=== PATIENT | female | born 1955 ===

== ENCOUNTER 2016-10-20 09:45 | Emergency (ER) | payer OTHER ==
[2016-10-20 09:54] VITALS: BP 125/78; PULSE 83; RESP 16; TEMP 98; O2SAT 98
[2016-10-20 09:55] VITALS: BMI 27.5
--- NOTE | 2016-10-20 10:54 | ED PDOC ---
Syncope/Near Syncope/Dizziness Time Seen by Provider: 10/20/16 10:21 Chief Complaint (Nursing): Dizziness/Lightheaded History Per: Patient Additional Complaint(s): Patient is a 61 F with pmh of colostomy in 2016, DVTs bilaterally 2016, HTN, HLD , DM, diverticulitis, anxiety, depression, who presents today c/o dizziness and generalized weakness x 1 week. Pt was recently discharged from [facility] ED when she presented with rectal bleeding. Pt was diagnosed with Anemia and GI bleed. Pt reports her Coumadin was stopped upon discharge and she was told not to resume until next week after she has her appointment with the clinic. Patient denies headache, shortness of breath, chest pain, abdominal pain, palpitations, nausea, or vomiting. no rectal bleeding in 1 week now. Pt reports that at this moment she feels well, she would like to apply for javy care. PMD: Dr. Saxena PmHx: DVTs bilaterally 2015, HTN, HLD, DM, diverticulitis, anxiety, depression Psurgical: appendectomy 11/17: colostomy 09/18: colostomy reversal allergies: oxycodone, tramadol famhx: mom- DM, HTN Social: no tobacco, alcohol, drugs, lives alone, not working Home meds: Coumadin 5 mg M-F 6mg Sat and Sun, Lisinopril 2.5 Simvastatin 20mg HS Metformin 500 mg BID Past Medical History Reviewed: Nursing Documentation, Vital Signs Vital Signs: Last Vital Signs Temp 98 F 10/20/16 09:54 Pulse 83 10/20/16 09:54 Resp 16 10/20/16 09:54 BP 125/78 10/20/16 09:54 Pulse Ox 98 10/20/16 09:54 - Medical History PMH: Anemia, Anxiety, Arthritis, Depression, Diabetes, Diverticulitis, Deep Vein Thrombosis (b/l lower ext), HTN, Hypercholesterolemia, Hyperlipidemia Denies: Chronic Kidney Disease - Surgical History Surgical History: Appendectomy - Family History Family History: States: Unknown Family Hx - Living Arrangements Living Arrangements: With Family - Social History Current smoker - smoking cessation education provided: No Alcohol: None Drugs: Denies - Immunization History Hx Tetanus Toxoid Vaccination: No Hx Influenza Vaccination: Yes Hx Pneumococcal Vaccination: Yes - Home Medications Home Medications: Ambulatory Orders Medication Instructions Recorded Docusate [Colace] 100 mg PO PRN PRN 01/07/16 Simvastatin 20 mg PO HS 01/07/16 metFORMIN [glucOPHAGE] 500 mg PO BID 01/07/16 Lisinopril [Zestril] 2.5 mg PO DAILY 05/14/16 - Allergies Allergies/Adverse Reactions: Allergies Allergy/AdvReac Type Severity Reaction Status Date / Time oxycodone Allergy RASH Verified 10/20/16 10:29 tramadol Allergy RASH Verified 10/20/16 10:29 Review of Systems ROS Statement: Except As Marked, All Systems Reviewed And Found Negative Constitutional: Positive for: Weakness Physical Exam - Reviewed Nursing Documentation Reviewed: Yes Vital Signs Reviewed: Yes - Physical Exam Appears: Positive for: Well, Non-toxic, No Acute Distress Head Exam: Positive for: ATRAUMATIC, NORMAL INSPECTION, NORMOCEPHALIC Skin: Positive for: Normal Color, Warm, DRY Eye Exam: Positive for: EOMI, Normal appearance, PERRL ENT: Positive for: Normal ENT Inspection Neck: Positive for: Normal, Painless ROM Cardiovascular/Chest: Positive for: Regular Rate, Rhythm Respiratory: Positive for: CNT, Normal Breath Sounds Gastrointestinal/Abdominal: Positive for: Normal Exam, Bowel Sounds, Soft Back: Positive for: Normal Inspection Extremity: Positive for: Normal ROM Neurologic/Psych: Positive for: Alert, Oriented - Laboratory Results Result Diagrams: 10/20/16 11:22 10/20/16 11:22 - ECG O2 Sat by Pulse Oximetry: 98 Medical Decision Making Medical Decision Making: IV access established and diagnostics ordered. EKG interpreted and cleared by ED MED labs resulted and reviewed with Pt, compared to labs results when admitted to [facility]. Pt reports that she is feeling well, no complaints. applied for javy care and would liek to go home at this time. Disposition - Clinical Impression Clinical Impression: Anemia, Weakness - Disposition Referrals: [facility] [place] [Outside] Andrew DURAN,MD Rachid [Medical Doctor] - Disposition: Routine/Home Disposition Time: 14:56 Condition: STABLE Instructions: Weakness (ED) - POA Present On Arrival: None
[2016-10-20 11:26] LABS: BASO # 0.1 K/uL (0.0-0.2); BASO % 1.2 % (0.0-2.0); EOS # 0.2 K/uL (0.0-0.7); EOS % 3.6 % (0.0-4.0); HEMATOCRIT 26.3 % (34.0-47.0); LYMPH # 2.3 K/uL (1.0-4.3); LYMPH % 45.9 % (20.0-40.0); MEAN CELL VOLUME 90.5 fl (81.0-99.0); MEAN CORPUSCULAR HEMOGLOBIN 28.6 pg (27.0-31.0); MEAN CORPUSCULAR HGB CONC 31.6 g/dL (33.0-37.0); MEAN PLATELET VOLUME 8.8 fl (7.2-11.7); MONO # 0.5 K/uL (0.0-0.8); MONO % 9.3 % (0.0-10.0); NRBC % 0.1 % (0.0-0.0); RED CELL DISTRIBUTION WIDTH 15.9 % (11.5-14.5); WHITE BLOOD COUNT 4.9 K/uL (4.8-10.8)
[2016-10-20 11:37] LABS: ALB/GLOB RATIO 1.3 (1.0-2.1); ALKALINE PHOSPHATASE 40 U/L (38-126); ALT/SGPT 27 U/L (9-52); AST/SGOT 44 U/L (14-36); BILIRUBIN,TOTAL 0.5 mg/dl (0.2-1.3); BLOOD UREA NITROGEN 14 mg/dl (7-17); CALCIUM 9.1 mg/dL (8.4-10.2); CARBON DIOXIDE 26 mmol/L (22-30); CHLORIDE 103 mmol/L (98-107); GFR AFRICAN-AMERICAN > 60; GLUCOSE,RANDOM 90 mg/dL (65-105); SODIUM 138 mmol/l (132-148); TOTAL PROTEIN 7.5 G/DL (6.3-8.2)
--- NOTE | 2016-10-20 11:48 | RAD ---
HISTORY: med screening COMPARISON: No prior. FINDINGS: LUNGS: No active pulmonary disease. PLEURA: No significant pleural effusion identified, no pneumothorax apparent. CARDIOVASCULAR: Normal. OSSEOUS STRUCTURES: No significant abnormalities. VISUALIZED UPPER ABDOMEN: Normal. OTHER FINDINGS: None. IMPRESSION: No active disease.
[2016-10-20 12:27] LABS: PARTIAL THROMBOPLASTIN TIME 24.7 Seconds (25.6-37.1)
[2016-10-20 13:10] LABS: POTASSIUM 4.6 MMOL/L (3.6-5.0)
--- NOTE | 2016-10-20 13:15 | CARD ---
APPROVED REPORT EKG Measurement Heart [id number] <Conclusion> Normal sinus rhythm Normal ECG
== END 2016-10-20 14:50 | disposition home or self-care (01) ==
LOC: H.ER 09:45
DX: D64.9 Anemia, unspecified (principal); R53.1 Weakness; E11.9 Type 2 diabetes mellitus without complications; E78.00 Pure hypercholesterolemia, unspecified; F32.9 Major depressive disorder, single episode, unspecified; F41.9 Anxiety disorder, unspecified; I10 Essential (primary) hypertension; Z79.01 Long term (current) use of anticoagulants; Z79.84 Long term (current) use of oral hypoglycemic drugs; Z86.718 Personal history of other venous thrombosis and embolism; Z93.3 Colostomy status

== ENCOUNTER 2016-10-31 09:04 | Emergency (ER) | payer OTHER ==
[2016-10-31 09:10] VITALS: TEMP 96.9; O2SAT 99
[2016-10-31 09:11] VITALS: BMI 27.7
--- NOTE | 2016-10-31 09:46 | ED PDOC ---
HPI: Abdomen Time Seen by Provider: 10/31/16 09:25 Chief Complaint (Nursing): Abdominal Pain Chief Complaint (Provider): abdominal pain History Per: Patient History/Exam Limitations: no limitations Onset/Duration Of Symptoms: Hrs Additional Complaint(s): Marietta Camilo is a 61 year old female, with a previous medical history of diverticulitis status post colectomy, who presents to the ED with complaints of abdominal pain which started prior to arrival. Patient denies any nausea, vomiting, diarrhea, bloody stool, fever or chills. She reports pain is similar to that of her acute diverticulitis. PMD: Rafa Ryder MD Past Medical History Reviewed: Historical Data, Nursing Documentation, Vital Signs Vital Signs: Last Vital Signs Temp 96.9 F L 10/31/16 09:09 Pulse 70 10/31/16 09:09 Resp 16 10/31/16 09:09 BP 123/75 10/31/16 09:09 Pulse Ox 99 10/31/16 09:48 - Medical History PMH: Anemia, Anxiety, Arthritis, Depression, Diabetes, Diverticulitis, Deep Vein Thrombosis (b/l lower ext), HTN, Hypercholesterolemia, Hyperlipidemia Denies: Chronic Kidney Disease - Surgical History Surgical History: Appendectomy Other surgeries: colectomy - Family History Family History: States: Unknown Family Hx - Immunization History Hx Tetanus Toxoid Vaccination: No Hx Influenza Vaccination: Yes Hx Pneumococcal Vaccination: Yes - Home Medications Home Medications: Ambulatory Orders Medication Instructions Recorded Docusate [Colace] 100 mg PO PRN PRN 01/07/16 Simvastatin 20 mg PO HS 01/07/16 metFORMIN [glucOPHAGE] 500 mg PO BID 01/07/16 Lisinopril [Zestril] 2.5 mg PO DAILY 05/14/16 Dicyclomine [Dicyclomine HCl] 10 mg PO Q8 #10 cap 10/31/16 Famotidine [Pepcid] 20 mg PO Q12 #20 tab 10/31/16 - Allergies Allergies/Adverse Reactions: Allergies Allergy/AdvReac Type Severity Reaction Status Date / Time oxycodone Allergy RASH Verified 10/20/16 10:29 tramadol Allergy RASH Verified 10/20/16 10:29 Review of Systems ROS Statement: Except As Marked, All Systems Reviewed And Found Negative Constitutional: Negative for: Fever, Chills Gastrointestinal: Positive for: Abdominal Pain. Negative for: Nausea, Vomiting , Diarrhea Physical Exam - Reviewed Nursing Documentation Reviewed: Yes Vital Signs Reviewed: Yes - Physical Exam Appears: Positive for: Well, Non-toxic, No Acute Distress Head Exam: Positive for: ATRAUMATIC, NORMAL INSPECTION, NORMOCEPHALIC Skin: Positive for: Normal Color, Warm, DRY Eye Exam: Positive for: EOMI, Normal appearance, PERRL ENT: Positive for: Normal ENT Inspection Neck: Positive for: Normal, Painless ROM Cardiovascular/Chest: Positive for: Regular Rate, Rhythm Respiratory: Positive for: CNT, Normal Breath Sounds Gastrointestinal/Abdominal: Positive for: Bowel Sounds, Soft, Tenderness (left sided) Back: Positive for: Normal Inspection Extremity: Positive for: Normal ROM Neurologic/Psych: Positive for: Alert, Oriented - Laboratory Results Result Diagrams: 10/31/16 09:48 10/31/16 09:48 - ECG O2 Sat by Pulse Oximetry: 99 (RA) Pulse Ox Interpretation: Normal Medical Decision Making Medical Decision Making: Initial Plan: * labs * CT abd & pelvis w/ IV contrast * reevaluation Scribe Attestation: Documented by Kimmie Edwards, acting as a scribe for Edinson Higgins MD. Provider Scribe Attestation: All medical record entries made by the Scribe were at my direction and personally dictated by me. I have reviewed the chart and agree that the record accurately reflects my personal performance of the history, physical exam, medical decision making, and the department course for this patient. I have also personally directed, reviewed, and agree with the discharge instructions and disposition. Disposition - Clinical Impression Clinical Impression: Gastritis, Ventral hernia - Patient ED Disposition Is Patient to be Admitted: No Counseled Patient/Family Regarding: Studies Performed, Diagnosis, Need For Followup, Rx Given - Disposition Disposition: Routine/Home Disposition Time: 12:54 Condition: FAIR Prescriptions: Dicyclomine [Dicyclomine HCl] 10 mg PO Q8 #10 cap Famotidine [Pepcid] 20 mg PO Q12 #20 tab Instructions: Gastritis (ED) Forms: [facility] (Chinese) Print Language: MALIAN
[2016-10-31 09:56] LABS: BASO # 0.1 K/uL (0.0-0.2); BASO % 1.7 % (0.0-2.0); EOS # 0.1 K/uL (0.0-0.7); EOS % 2.1 % (0.0-4.0); HEMATOCRIT 26.6 % (34.0-47.0); LYMPH # 1.6 K/uL (1.0-4.3); LYMPH % 25.8 % (20.0-40.0); MEAN CELL VOLUME 87.2 fl (81.0-99.0); MEAN CORPUSCULAR HEMOGLOBIN 27.3 pg (27.0-31.0); MEAN CORPUSCULAR HGB CONC 31.4 g/dL (33.0-37.0); MEAN PLATELET VOLUME 8.8 fl (7.2-11.7); MONO # 0.5 K/uL (0.0-0.8); MONO % 7.8 % (0.0-10.0); NEUT # 3.8 K/uL (1.8-7.0); NEUT % 62.6 % (50.0-75.0); NRBC % 0.2 % (0.0-0.0); RED CELL DISTRIBUTION WIDTH 15.8 % (11.5-14.5)
[2016-10-31 10:09] LABS: ALB/GLOB RATIO 1.2 (1.0-2.1); ALKALINE PHOSPHATASE 50 U/L (38-126); ALT/SGPT 29 U/L (9-52); AST/SGOT 33 U/L (14-36); BILIRUBIN,TOTAL 0.4 mg/dl (0.2-1.3); BLOOD UREA NITROGEN 15 mg/dl (7-17); CALCIUM 9.2 mg/dL (8.4-10.2); CARBON DIOXIDE 24 mmol/L (22-30); CHLORIDE 108 mmol/L (98-107); GFR AFRICAN-AMERICAN > 60; GLUCOSE,RANDOM 106 mg/dL (65-105); SODIUM 139 mmol/l (132-148); TOTAL PROTEIN 7.3 G/DL (6.3-8.2)
[2016-10-31 10:19] LABS: POTASSIUM 5.1 MMOL/L (3.6-5.0)
[2016-10-31] MEDS ORDERED: Iohexol 300 100 ML IJ ONE (11:21)
[2016-10-31] MEDS ORDERED: Sodium Chloride 0.9% 50 ML IV ONE (11:22)
--- NOTE | 2016-10-31 12:47 | CT ---
PROCEDURE: CT Abdomen and Pelvis with contrast HISTORY: abd h/o diverticulitis COMPARISON: None. TECHNIQUE: Contrast dose: 100 cc of Omnipaque 350 Radiation dose: Total exam DLP = 581 mGy-cm. This CT exam was performed using one or more of the following dose reduction techniques: Automated exposure control, adjustment of the mA and/or kV according to patient size, and/or use of iterative reconstruction technique. FINDINGS: LOWER THORAX: Unremarkable. LIVER: Unremarkable. No gross lesion or ductal dilatation. GALLBLADDER AND BILE DUCTS: Unremarkable. PANCREAS: Unremarkable. No gross lesion or ductal dilatation. SPLEEN: Unremarkable. ADRENALS: Unremarkable. No mass. KIDNEYS AND URETERS: Unremarkable. No hydronephrosis. No solid mass. VASCULATURE: Unremarkable. No aortic aneurysm. BOWEL: Left periumbilical hernia containing small bowel loops. Previous colon surgery. Few small distended loops of small bowel without anjel obstruction. No evidence of phlegmon or abscess.. No obstruction. No gross mural thickening. APPENDIX: Normal appendix. PERITONEUM: Unremarkable. No free fluid. No free air. LYMPH NODES: Unremarkable. No enlarged lymph nodes. BLADDER: Unremarkable. REPRODUCTIVE: Unremarkable. BONES: No acute fracture. OTHER FINDINGS: None. IMPRESSION: Left periumbilical hernia containing small bowel loops. Previous colon surgery. Few small distended loops of small bowel without anjel obstruction. No evidence of phlegmon or abscess..
[2016-10-31 15:04] VITALS: BP 120/70; PULSE 72; RESP 18
== END 2016-10-31 14:55 | disposition home or self-care (01) ==
LOC: H.ER 09:04
DX: K29.70 Gastritis, unspecified, without bleeding (principal); K43.9 Ventral hernia without obstruction or gangrene; I10 Essential (primary) hypertension; Z86.718 Personal history of other venous thrombosis and embolism; E11.9 Type 2 diabetes mellitus without complications; Z86.59 Personal history of other mental and behavioral disorders; Z79.899 Other long term (current) drug therapy; Z79.84 Long term (current) use of oral hypoglycemic drugs

== ENCOUNTER 2016-10-31 22:04 | Emergency (ER) | payer OTHER ==
[2016-10-31 22:05] VITALS: BMI 27.7
[2016-10-31 22:12] VITALS: BP 119/76; PULSE 72; RESP 16; TEMP 97.4; O2SAT 100
--- NOTE | 2016-10-31 22:18 | ED PDOC ---
HPI: Abdomen Time Seen by Provider: 10/31/16 22:14 Chief Complaint (Nursing): Abdominal Pain Chief Complaint (Provider): Abdominal pain History Per: Patient, EMS Additional Complaint(s): Marietta Camilo is a 61 year old female, with a previous medical history of diverticulitis status post colectomy, who presents to the ED for the second time today for evaluation of continued abdominal pain which started earlier this am. Pt seen and evaluated in the ED earlier today and was diagnosed with Gastritis after CT was negative and Pt reports she was sent home without improvement after Bentyl. Pt sent home with RX for Bentyl and pepcid and did not fill her scripts yet. Patient denies any nausea, vomiting, diarrhea, bloody stool, fever or chills. PMD: Rafa Ryder MD CT review: IMPRESSION: Left periumbilical hernia containing small bowel loops. Previous colon surgery. Few small distended loops of small bowel without anjel obstruction. No evidence of phlegmon or abscess. Past Medical History Reviewed: Nursing Documentation, Vital Signs Vital Signs: Last Vital Signs Temp 97.4 F L 10/31/16 22:08 Pulse 72 10/31/16 22:08 Resp 16 10/31/16 22:08 BP 119/76 10/31/16 22:08 Pulse Ox 100 10/31/16 22:18 - Medical History PMH: Anemia, Anxiety, Arthritis, Depression, Diabetes, Diverticulitis, Deep Vein Thrombosis (b/l lower ext), HTN, Hypercholesterolemia, Hyperlipidemia Denies: Chronic Kidney Disease - Surgical History Surgical History: Appendectomy - Family History Family History: States: Unknown Family Hx - Immunization History Hx Tetanus Toxoid Vaccination: No Hx Influenza Vaccination: Yes Hx Pneumococcal Vaccination: Yes - Home Medications Home Medications: Ambulatory Orders Medication Instructions Recorded Docusate [Colace] 100 mg PO PRN PRN 01/07/16 Simvastatin 20 mg PO HS 01/07/16 metFORMIN [glucOPHAGE] 500 mg PO BID 01/07/16 Lisinopril [Zestril] 2.5 mg PO DAILY 05/14/16 Dicyclomine [Dicyclomine HCl] 10 mg PO Q8 #10 cap 10/31/16 Famotidine [Pepcid] 20 mg PO Q12 #20 tab 10/31/16 - Allergies Allergies/Adverse Reactions: Allergies Allergy/AdvReac Type Severity Reaction Status Date / Time oxycodone Allergy RASH Verified 10/20/16 10:29 tramadol Allergy RASH Verified 10/20/16 10:29 Review of Systems ROS Statement: Except As Marked, All Systems Reviewed And Found Negative Gastrointestinal: Positive for: Abdominal Pain Physical Exam - Reviewed Nursing Documentation Reviewed: Yes Vital Signs Reviewed: Yes - Physical Exam Appears: Positive for: Well, Non-toxic, No Acute Distress Head Exam: Positive for: ATRAUMATIC, NORMAL INSPECTION, NORMOCEPHALIC Skin: Positive for: Normal Color, Warm, DRY Eye Exam: Positive for: EOMI, Normal appearance, PERRL ENT: Positive for: Normal ENT Inspection Neck: Positive for: Normal, Painless ROM Cardiovascular/Chest: Positive for: Regular Rate, Rhythm Respiratory: Positive for: CNT, Normal Breath Sounds Gastrointestinal/Abdominal: Positive for: Normal Exam, Bowel Sounds, Soft, Other (well healed surgical scars). Negative for: Tenderness, Distended, Guarding Back: Positive for: Normal Inspection Extremity: Positive for: Normal ROM Neurologic/Psych: Positive for: Alert, Oriented - Laboratory Results Result Diagrams: 10/31/16 23:52 - ECG O2 Sat by Pulse Oximetry: 100 Medical Decision Making Medical Decision Making: EKG interpreted and cleared by ED MD IV access established and treatment initiated with IVF, Pepcid, Zofran and GI cocktail Pt on re-eval reports feeling greatly improved. Pt happy and very appreciative. Labs resulted and reviewed with Pt who demonstrated full understanding. CBC needed redraw, however, Pt rpeorts feeling imporved. requesting no futher sticks , would like to go home. Abdomen soft, non tender and non distended on re-eval Disposition - Clinical Impression Clinical Impression: Gastritis - Patient ED Disposition Is Patient to be Admitted: No - Disposition Disposition: Routine/Home Disposition Time: 02:25 Condition: STABLE Instructions: Gastritis (ED) Forms: [facility] (Armenian) - POA Present On Arrival: None
[2016-10-31] MEDS ORDERED: Alum-Mag Hydrox-Simethicone Susp (30 mL) PO STA (22:24)
[2016-10-31] MEDS ORDERED: Alum-Mag Hydrox-Simethicone Susp (30 mL) ONE (23:03)
[2016-10-31] MEDS ORDERED: Sodium Chloride 0.9% 1,000 ML IV STA (23:50)
[2016-11-01 00:05] LABS: ALB/GLOB RATIO 1.2 (1.0-2.1); ALKALINE PHOSPHATASE 62 U/L (38-126); ALT/SGPT 28 U/L (9-52); AMYLASE 93 U/L (30-110); AST/SGOT 21 U/L (14-36); BILIRUBIN,TOTAL 0.3 mg/dl (0.2-1.3); BLOOD UREA NITROGEN 13 mg/dl (7-17); CALCIUM 8.9 mg/dL (8.4-10.2); CARBON DIOXIDE 20 mmol/L (22-30); CHLORIDE 108 mmol/L (98-107); GFR AFRICAN-AMERICAN > 60; GLUCOSE,RANDOM 93 mg/dL (65-105); LIPASE 142 U/L (23-300); POTASSIUM 3.7 MMOL/L (3.6-5.0); SODIUM 137 mmol/l (132-148); TOTAL PROTEIN 7.3 G/DL (6.3-8.2)
[2016-11-01 00:12] LABS: RBC URINE 1 /hpf (0-3); URINE BILIRUBIN NEGATIVE (NEGATIVE); URINE BLOOD NEGATIVE (NEGATIVE); URINE COLOR YELLOW (YELLOW); URINE GLUCOSE (UA) NEG (Normal); URINE KETONE NEGATIVE (NEGATIVE); URINE LEUKOCYTE ESTERASE TRACE Leu/uL (Negative); URINE PROTEIN NEGATIVE (NEGATIVE); URINE UROBILINOGEN 0.2-1.0 mg/dL (0.2-1.0); WBC URINE 3 /hpf (0-5)
--- NOTE | 2016-11-01 14:24 | RAD ---
PROCEDURE: CHEST RADIOGRAPH, 1 VIEW HISTORY: epigastric abdominal pain COMPARISON: 10/20/2016. FINDINGS: LUNGS: Clear. PLEURA: No pneumothorax or pleural fluid seen. CARDIOVASCULAR: No radiographic findings to suggest acute or significant cardiovascular disease. OSSEOUS STRUCTURES: No significant abnormalities. VISUALIZED UPPER ABDOMEN: Normal. OTHER FINDINGS: None. IMPRESSION: No active disease. No acute/significant interval changes.
--- NOTE | 2016-11-03 18:34 | CARD ---
APPROVED REPORT EKG Measurement Heart [id number] ID [id number] <Conclusion> Normal sinus rhythm Normal ECG
== END 2016-11-01 06:22 | disposition home or self-care (01) ==
LOC: H.ER 22:04
DX: K29.70 Gastritis, unspecified, without bleeding (principal); E11.9 Type 2 diabetes mellitus without complications; I10 Essential (primary) hypertension; Z86.718 Personal history of other venous thrombosis and embolism; Z86.59 Personal history of other mental and behavioral disorders; Z79.899 Other long term (current) drug therapy; Z79.84 Long term (current) use of oral hypoglycemic drugs

== ENCOUNTER 2017-02-15 07:32 | Day surgery (SDC) | payer OTHER ==
[2017-02-01 11:22] VITALS: BMI 26.8
[2017-02-15] MEDS ORDERED: Lactated Ringer's 1,000 ML IV ONE (08:04)
[2017-02-15] MEDS ORDERED: Propofol 10 mg/ml Inj (20 ML) ONE (09:15)
[2017-02-15] MEDS ORDERED: Lidocaine 2% MPF (5 ml) Inj ONE (09:15)
[2017-02-15 09:41] VITALS: RESP 15; TEMP 98
[2017-02-15 09:58] VITALS: BP 121/59; PULSE 66; O2SAT 100
== END 2017-02-15 09:59 | disposition home or self-care (01) ==
LOC: H.ENDO 07:32
PROVIDERS: ATTEND Internal Medicine Gastroenterology
DX: Z12.11 Encounter for screening for malignant neoplasm of colon (principal); E11.9 Type 2 diabetes mellitus without complications; E78.5 Hyperlipidemia, unspecified; D12.3 Benign neoplasm of transverse colon; K57.30 Diverticulosis of large intestine without perforation or abscess without bleeding; K64.8 Other hemorrhoids; Z98.0 Intestinal bypass and anastomosis status
CPT/HCPCS: 45380; 88305; J2704; J7120

== ENCOUNTER 2018-07-26 09:39 | Emergency (ER) | payer MEDICAID, OTHER ==
[2018-07-26 09:46] VITALS: BMI 26.9
[2018-07-26 09:47] VITALS: BP 112/70; PULSE 59; RESP 18; TEMP 98.5
--- NOTE | 2018-07-26 11:15 | ED PDOC ---
Lower Extremity Pain/Injury Time Seen by Provider: 07/26/18 10:46 Chief Complaint (Nursing): Lower Extremity Problem/Injury Chief Complaint (Provider): Lower Extremity Problem/Injury History Per: Patient, Monomer Recovery Supervisor (Melisa) History/Exam Limitations: no limitations Onset/Duration Of Symptoms: Days Current Symptoms Are (Timing): Still Present Additional Complaint(s): 63 year old female with a past medical history of diabetes, hypercholesterolemia, depression, and anemia who is presenting to the ED for evaluation of right leg pain ongoing for over 1 week. Patient states that 2 days ago she was at [facility] where they splinted her right leg and foot. She also reports that she was seen at the podiatry clinic multiple times where the splint was changed 3 times. She states that the pain is associated with a sensation of heaviness and admits that she is taking Meloxicam for pain with last dose at noon yesterday. Patient denies any numbness or tingling and offers no other medical complaints. PMD: none provided Past Medical History Reviewed: Historical Data, Nursing Documentation, Vital Signs Vital Signs: Last Vital Signs Temp 98.5 F 07/26/18 09:46 Pulse 59 L 07/26/18 09:46 Resp 18 07/26/18 09:46 BP 112/70 07/26/18 09:46 Pulse Ox 99 07/26/18 09:46 - Medical History PMH: Anemia, Anxiety, Arthritis, Depression, Diabetes, Diverticulitis (PERFORATED), Deep Vein Thrombosis (b/l lower ext), Hypercholesterolemia, Hyperlipidemia Denies: Chronic Kidney Disease - Surgical History Surgical History: Appendectomy - Family History Family History: States: Unknown Family Hx - Social History Current smoker - smoking cessation education provided: No Alcohol: None Drugs: Denies - Immunization History Hx Tetanus Toxoid Vaccination: No (PT UNSURE) Hx Influenza Vaccination: No Hx Pneumococcal Vaccination: Yes (2016) - Home Medications Home Medications: Ambulatory Orders Medication Instructions Recorded Rosuvastatin Calcium [Crestor] 10 mg PO DAILY 05/31/17 Metformin HCl [Glucophage] 500 mg PO BID 07/08/17 Aspirin [Ecotrin] 81 mg PO DAILY 07/20/17 Famotidine [Pepcid] 20 mg PO DAILY 07/20/17 Ibuprofen [Motrin] 1 tab PO TID PRN #20 tab 06/29/18 - Allergies Allergies/Adverse Reactions: Allergies Allergy/AdvReac Type Severity Reaction Status Date / Time oxycodone Allergy RASH Verified 03/18/18 12:04 tramadol Allergy RASH Verified 03/18/18 12:04 Review of Systems ROS Statement: Except As Marked, All Systems Reviewed And Found Negative Musculoskeletal: Positive for: Leg Pain Neurological: Negative for: Numbness, Other (tingling ) Physical Exam - Reviewed Nursing Documentation Reviewed: Yes Vital Signs Reviewed: Yes - Physical Exam Appears: Positive for: Non-toxic, No Acute Distress Head Exam: Positive for: ATRAUMATIC, NORMAL INSPECTION, NORMOCEPHALIC Skin: Positive for: Normal Color, Warm, DRY Eye Exam: Positive for: Normal appearance Pulses-Dorsalis Pedis (L): 2+ Pulses-Dorsalis Pedis (R): 2+ Back: Positive for: Normal Inspection Extremity: Positive for: Normal ROM, Other (Right Lower Extremity: in splint, patient is moving all digits, (+) tenderness to lower anterior calf). Negative for: Deformity, Swelling Neurological/Psych: Positive for: Awake, Alert, Normal Tone, Oriented. Negative for: Motor/Sensory Deficits - ECG O2 Sat by Pulse Oximetry: 99 (RA) Pulse Ox Interpretation: Normal Medical Decision Making Medical Decision Making: Time: 11:10 Plan: --Ibuprofen 600 mg PO --Ultrasound right lower extremity 12:38 Provider spoke to podiatry resident regarding patient's case. Pt evaluated by Podiatry resident, follow-up in office in 3 weeks. Scribe Attestation: Documented by Virginia Little, acting as a scribe for Kimmie Edgar MD. Provider Scribe Attestation: All medical record entries made by the Scribe were at my direction and personally dictated by me. I have reviewed the chart and agree that the record accurately reflects my personal performance of the history, physical exam, medical decision making, and the department course for this patient. I have also personally directed, reviewed, and agree with the discharge instructions and disposition. Disposition - Clinical Impression Clinical Impression: Leg pain - Disposition Referrals: Podiatry Clinic [Outside] Disposition: Routine/Home Disposition Time: 14:05 Condition: STABLE Additional Instructions: FOLLOW-UP WITH PODIATRY CLINIC IN 3 WEEKS. Instructions: Ankle Fracture Forms: [facility] (Bulgarian) Print Language: NIGERIAN
--- NOTE | 2018-07-26 12:32 | US ---
Date of service: 07/26/2018 PROCEDURE: Right lower extremity venous duplex Doppler. HISTORY: RLE pain COMPARISON: None available. TECHNIQUE: Common femoral, superficial femoral, popliteal and posterior tibial veins were evaluated. Flow was assessed with color Doppler, compressibility, assessment of phasic flow and augmentation response. FINDINGS: COMMON FEMORAL VEIN: Unremarkable. SUPERFICIAL FEMORAL VEIN: Unremarkable. POPLITEAL VEIN: Unremarkable. POSTERIOR TIBIAL VEIN: Unremarkable. OTHER FINDINGS: Morphologically, unremarkable lymph node(s) enlarged right inguinal lymph node 0.9 x 1.5 x 2.5 cm. IMPRESSION: No evidence of deep venous thrombosis in the right lower extremity.
--- NOTE | 2018-07-26 13:51 | RAD ---
Date of service: 07/26/2018 PROCEDURE: Left Foot Radiographs. HISTORY: Pain, s/p fx COMPARISON: None. TECHNIQUE: 3 views obtained. FINDINGS: BONES: There is some indistinctness to the 2nd proximal phalanx some clear this is due to subacute nondisplaced fracture here or super imposition ink. Patient has some hammertoe orientations at this approximate level. No metatarsal shaft fractures are seen. JOINTS: Moderate to severe 1st Negative study for primary or reactivation tuberculosis. Prominent hallux valgus orientation. The sesamoid bones are laterally position. SOFT TISSUES: Mild prominence of mild increased density to the medial soft tissues bordering the 1st metatarsal head-a finding compatible with bunion. Correlate clinically. OTHER FINDINGS: Small os tibial externum noted. Nani's tendon insertional enesthesophyte. IMPRESSION: Indeterminate appearance to the 2nd proximal phalangeal metaphysis either due to super in positioning or a nondisplaced probably subacute type fracture. Clinical correlation here is needed in comparison with any known fracture sites on earlier outside exams. No metatarsal fracture seen. Other findings as above.
--- NOTE | 2018-07-26 13:53 | RAD ---
Date of service: 07/26/2018 PROCEDURE: Right Ankle Radiographs. HISTORY: Pain, s/p fx COMPARISON: None available. TECHNIQUE: 3 views obtained. FINDINGS: BONES: Nondisplaced distal fibular epiphyseal metaphyseal junctional fracture-ankle joint mortise extension suspect. N JOINTS: Minimal midfoot arthrosis. Osteoarthritis. Ankle mortise maintained nondisplaced fibular fracture extending into the ankle mortise. Talar dome intact SOFT TISSUES: Lateral perimalleolar soft tissue swelling few phleboliths. OTHER FINDINGS: Cornell's tendon insertional enesthesophyte. IMPRESSION: Nondisplaced distal fibular metaphyseal fracture-as detailed above. No dislocation seen. Other findings as above.
[2018-07-30 08:19] VITALS: O2SAT 99
== END 2018-07-26 14:45 | disposition home or self-care (01) ==
LOC: H.ER 09:39
DX: M79.606 Pain in leg, unspecified (principal); E11.9 Type 2 diabetes mellitus without complications; E78.00 Pure hypercholesterolemia, unspecified; Z86.718 Personal history of other venous thrombosis and embolism; Z88.5 Allergy status to narcotic agent

== ENCOUNTER 2018-08-07 10:49 | Emergency (ER) | payer SELFPAY ==
[2018-08-07 10:54] VITALS: PULSE 76; BMI 28.3
--- NOTE | 2018-08-07 12:08 | ED PDOC ---
HPI: General Adult <Shanika Appiah - Last Filed: 08/07/18 14:51> Additional Complaint(s): 63 y/o F with a PMHx of DM2, R hand fracture and current R ankle fracture presents to ED c/o bilateral upper extremities weakness. Pt explains that RUE weakness began 7 days ago, noticed by inability to grab cup in order to drink tea. Then, pt noticed LUE weakness 4 days ago and inability to hold cup or write. Pt also reports b/l arm tingling and numbness. Pt has been using crutches since 2 months ago, has stopped using crutches a few days ago with some improvement of symptoms. No recent fall. Pt denies fever, chills, dizziness, headache, speech problems, chest pain, SOB, abdominal pain, N/V/D. PMD: Marly Lechuga Allergies: Oxycodone and tramadol. Meds: Metformin 500mg PO BID, Rosuvastatin 10mg PO daily, Lisinopril 5mg PO aniya y, aspirin 81mg PO daily. PMHx: DM2 and HLD. (R wrist fracture; R ankle fracture currently being managed) PSHx: Colostomy SHx: No tobacco, no alcohol and no rec drugs. <Tyrel Sands - Last Filed: 08/07/18 15:51> Time Seen by Provider: 08/07/18 11:14 Chief Complaint (Nursing): Weakness/Neurological Deficit Supervising Attending Note - Supervising Attending Note The Documented history was done by the: Physician Bundle Packer The documented physical exam was done by the: Physician Bundle Packer The documented procedures were done by the: Physician Bundle Packer - Attestation: I have personally seen and examined this patient.: Yes I have fully participated in the care of the patient.: Yes - Notes: Notes:: pt seen and evaluated along with resident. pt with bilateral intermittant hand parasthesia and weakness no other symptoms or neurological deficit imaging head negaitve pt wants to follow up in the clinic for outpt (had been following with dr lechuga at [facility] but wants to now follow up [facility]._) also referred pt to to outpatient neurology <hSanika Appiah - Last Filed: 08/07/18 14:51> Past Medical History Vital Signs: Last Vital Signs Temp 98.2 F 08/07/18 10:54 Pulse 76 08/07/18 14:31 Resp 19 08/07/18 14:31 BP 110/78 08/07/18 14:31 Pulse Ox 98 08/07/18 14:31 <Shanika Appiah - Last Filed: 08/07/18 14:51> Vital Signs: Last Vital Signs Temp 98.2 F 08/07/18 10:54 Pulse 76 08/07/18 10:54 Resp 16 08/07/18 10:54 BP 108/71 08/07/18 10:54 Pulse Ox 97 08/07/18 10:54 Primary Care Provider: Non [facility] Provider, - Medical History PMH: Anemia, Anxiety, Arthritis, Depression, Diabetes, Diverticulitis (PERFORATED), Deep Vein Thrombosis (b/l lower ext), Hypercholesterolemia, Hyperlipidemia Denies: Chronic Kidney Disease - Surgical History Surgical History: Appendectomy - Family History Family History: States: Unknown Family Hx - Immunization History Hx Tetanus Toxoid Vaccination: No (PT UNSURE) Hx Influenza Vaccination: No Hx Pneumococcal Vaccination: Yes (2016) <Tyrel Sands - Last Filed: 08/07/18 15:51> - Home Medications Home Medications: Ambulatory Orders Medication Instructions Recorded Rosuvastatin Calcium [Crestor] 10 mg PO DAILY 05/31/17 Metformin HCl [Glucophage] 500 mg PO BID 07/08/17 Aspirin [Ecotrin] 81 mg PO DAILY 07/20/17 Famotidine [Pepcid] 20 mg PO DAILY 07/20/17 Ibuprofen [Motrin] 1 tab PO TID PRN #20 tab 06/29/18 - Allergies Allergies/Adverse Reactions: Allergies Allergy/AdvReac Type Severity Reaction Status Date / Time oxycodone Allergy RASH Verified 08/07/18 11:05 tramadol Allergy RASH Verified 08/07/18 11:05 Review of Systems Constitutional: Negative for: Fever, Chills ENT: Negative for: Ear Pain, Ear Discharge Respiratory: Negative for: Cough, Shortness of Breath, Hemoptysis Gastrointestinal: Negative for: Nausea, Vomiting, Abdominal Pain, Diarrhea Genitourinary Female: Negative for: Dysuria, Hematuria Musculoskeletal: Negative for: Neck Pain, Back Pain Skin: Negative for: Rash Neurological: Positive for: Weakness (bilateral upper extremities), Numbness (bilateral extremities). Negative for: Incoordination, Change in Speech, Confusion, Seizures, Altered Mental Status, Headache, Dizziness Psych: Negative for: Anxiety <WichoTyrel - Last Filed: 08/07/18 15:51> Physical Exam - Physical Exam Appears: Positive for: No Acute Distress Head Exam: Positive for: ATRAUMATIC, NORMAL INSPECTION Eye Exam: Positive for: EOMI, PERRL. Negative for: Nystagmus ENT: Positive for: Normal ENT Inspection. Negative for: Nasal Congestion Neck: Positive for: Normal, Painless ROM, Supple Cardiovascular/Chest: Positive for: Regular Rate, Rhythm Respiratory: Positive for: Normal Breath Sounds Gastrointestinal/Abdominal: Positive for: Soft. Negative for: Tenderness, Organomegaly, Mass Extremity: Positive for: Normal ROM. 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 Negative for: Lethargic, Listless <WichoTyrel - Last Filed: 08/07/18 15:51> - Laboratory Results Result Diagrams: 08/07/18 12:35 08/07/18 12:35 Lab Results: Total Bilirubin 0.5 mg/dl (0.2-1.3) 08/07/18 12:35 AST 28 U/L (14-36) 08/07/18 12:35 ALT 22 U/L (9-52) 08/07/18 12:35 Alkaline Phosphatase 35 U/L (38-126) L D 08/07/18 12:35 Total Protein 7.9 G/DL (6.3-8.2) 08/07/18 12:35 Albumin 4.4 g/dL (3.5-5.0) 08/07/18 12:35 Globulin 3.5 gm/dL (2.2-3.9) 08/07/18 12:35 Albumin/Globulin Ratio 1.3 (1.0-2.1) 08/07/18 12:35 <Shanika Appiah Y - Last Filed: 08/07/18 14:51> - Laboratory Results Result Diagrams: 08/07/18 12:35 08/07/18 12:35 - ECG O2 Sat by Pulse Oximetry: 97 <SandsDarreno - Last Filed: 08/07/18 15:51> Medical Decision Making Medical Decision Makin:00 --CBC and CMP ordered. 14:00 --Pt feeling better, no neuro deficit. --head CT ordered since weakness in still present. 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 Pt was educated on the CT findings and reassured that lesion is old with NO need for acute treatment. Pt was recommended to f/u with Neurologist if worsening of symptoms. --Appt set up on 08/25/18 at 10:[address] Montalvo at [facility] --Neurology specialist information given to patient. --Pt stable, discharged home with instruction to return to ED if symptoms aggravates. <WichoTyrel - Last Filed: 08/07/18 15:51> Disposition <Shanika Appiah Antonio - Last Filed: 08/07/18 14:51> - Patient ED Disposition Is Patient to be Admitted: No - Disposition Disposition: Routine/Home Disposition Time: 15:49 <WichoTyrel - Last Filed: 08/07/18 15:51> - Clinical Impression Clinical Impression: Acute weakness - Disposition Referrals: Saulo Cedeño MD [Medical Doctor] - Condition: IMPROVED Additional Instructions: follow up in the clinic in one week - also follow up with neurologist as indica karolina below return to the ED with any worsening or concerning symptoms Instructions: Weakness (ED) Forms: [facility] (Mauritian), [facility] (Georgian) Print Language: MOSOTHO
[2018-08-07 12:45] LABS: BASO # 0.1 K/uL (0.0-0.2); BASO % 1.3 % (0.0-2.0); EOS # 0.1 K/uL (0.0-0.7); EOS % 1.3 % (0.0-4.0); HEMOGLOBIN 12.9 g/dL (12.0-16.0); MEAN CELL VOLUME 90.8 fl (81.0-99.0); MEAN PLATELET VOLUME 9.2 fl (7.2-11.7); MONO # 0.5 K/uL (0.0-0.8); MONO % 8.3 % (0.0-10.0); NEUT # 3.5 K/uL (1.8-7.0); NEUT % 57.1 % (50.0-75.0); NRBC % 0.1 % (0.0-0.0); RBC 4.29 Mil/uL (3.80-5.20); RED CELL DISTRIBUTION WIDTH 15.1 % (11.5-14.5); WHITE BLOOD COUNT 6.2 K/uL (4.8-10.8)
[2018-08-07 12:53] LABS: ALB/GLOB RATIO 1.3 (1.0-2.1); ALBUMIN 4.4 g/dL (3.5-5.0); BLOOD UREA NITROGEN 20 mg/dl (7-17); CALCIUM 9.2 mg/dL (8.4-10.2); GFR NON-AFRICAN AMERICAN > 60
[2018-08-07 12:56] LABS: ALT/SGPT 22 U/L (9-52); AST/SGOT 28 U/L (14-36)
--- NOTE | 2018-08-07 15:19 | CT ---
Date of service: 08/07/2018 PROCEDURE: CT HEAD WITHOUT CONTRAST. HISTORY: b/l upper extremities weakness COMPARISON: None available. TECHNIQUE: Axial computed tomography images were obtained through the head/brain without intravenous contrast. Radiation dose: Total exam DLP = 728.19 mGy-cm. This CT exam was performed using one or more of the following dose reduction techniques: Automated exposure control, adjustment of the mA and/or kV according to patient size, and/or use of iterative reconstruction technique. FINDINGS: HEMORRHAGE: No intracranial hemorrhage. BRAIN: The roberts-white matter differentiation is well preserved. There is no mass effect or definitive edema pattern appreciated including the cortex. There is proportional expansion of the ventriculosulcal and cisternal spaces however in a pattern most compatible with diffuse cerebral atrophy. There is a questionable lucency in the left side of the jake which may indicate a chronic infarct. Follow-up MRI is advised when feasible. No suspicious extra-axial fluid collection is identified in the midline brain anatomy appears grossly nonfocal as imaged. VENTRICLES: Unremarkable. No hydrocephalus. CALVARIUM: Unremarkable. PARANASAL SINUSES: Unremarkable as visualized. No significant inflammatory changes. MASTOID AIR CELLS: Unremarkable as visualized. No inflammatory changes. OTHER FINDINGS: None. IMPRESSION: Age-related neuro degenerative changes are identified and appear age-appropriate. Small lucency at the jake is suspicious for chronic infarct. Follow-up MRI advised when feasible.
[2018-08-07 15:49] VITALS: O2SAT 97
[2018-08-07 15:56] VITALS: BP 114/76; RESP 16; TEMP 98.4
== END 2018-08-07 15:57 | disposition home or self-care (01) ==
LOC: H.ER 10:49
DX: R53.1 Weakness (principal); E11.9 Type 2 diabetes mellitus without complications; Z86.59 Personal history of other mental and behavioral disorders; Z79.84 Long term (current) use of oral hypoglycemic drugs; Z79.899 Other long term (current) drug therapy; Z79.82 Long term (current) use of aspirin; Z86.718 Personal history of other venous thrombosis and embolism; Z88.5 Allergy status to narcotic agent; Z88.8 Allergy status to other drugs, medicaments and biological substances; E78.00 Pure hypercholesterolemia, unspecified

== ENCOUNTER 2018-08-30 15:13 | Emergency (ER) | payer SELFPAY ==
[2018-08-30 15:13] VITALS: BMI 28.3
[2018-08-30 15:33] VITALS: O2SAT 98
[2018-08-30 17:00] LABS: BASO # 0.1 K/uL (0.0-0.2); BASO % 1.1 % (0.0-2.0); EOS # 0.1 K/uL (0.0-0.7); EOS % 2.2 % (0.0-4.0); HEMOGLOBIN 12.1 g/dL (12.0-16.0); LYMPH # 2.3 K/uL (1.0-4.3); LYMPH % 35.8 % (20.0-40.0); MEAN CELL VOLUME 91.8 fl (81.0-99.0); MEAN CORPUSCULAR HEMOGLOBIN 29.8 pg (27.0-31.0); MEAN CORPUSCULAR HGB CONC 32.5 g/dL (33.0-37.0); MEAN PLATELET VOLUME 9.1 fl (7.2-11.7); MONO # 0.6 K/uL (0.0-0.8); MONO % 9.4 % (0.0-10.0); NEUT # 3.3 K/uL (1.8-7.0); NEUT % 51.5 % (50.0-75.0); RBC 4.07 Mil/uL (3.80-5.20); RED CELL DISTRIBUTION WIDTH 15.1 % (11.5-14.5); WHITE BLOOD COUNT 6.5 K/uL (4.8-10.8)
[2018-08-30 17:07] LABS: PARTIAL THROMBOPLASTIN TIME 29.4 Seconds (25.6-37.1)
--- NOTE | 2018-08-30 17:07 | ED PDOC ---
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 Pt notes she broke her ankle a few weeks ago, and was seen by the podiatry clinic today for follow up and was referred here for US to r/o DVT. Patient reports the pain is to the inside back of her leg. Patient claims her symptoms are exacerbated when ambulating. Patient took Motrin yesterday with minimal relief of symptoms. Patient denies numbness, tingling, changes in skin color, chest pain, and difficulty breathing. PCP: Dr. Jay Carter Past Medical History Reviewed: Historical Data, Nursing Documentation, Vital Signs Vital Signs: Last Vital Signs Temp 98.3 F 08/30/18 15:29 Pulse 71 08/30/18 15:29 Resp 16 08/30/18 15:29 BP 122/64 08/30/18 15:29 Pulse Ox 98 08/30/18 15:29 Primary Care Provider: Jay Carter - Medical History PMH: Anemia, Anxiety, Arthritis, Depression, Diabetes, Diverticulitis (PERFORATED), Deep Vein Thrombosis (b/l lower ext), Fractures (ankle), Hypercholesterolemia, Hyperlipidemia Denies: Chronic Kidney Disease - Surgical History Surgical History: Appendectomy - Family History Family History: States: Unknown Family Hx - Immunization History Hx Tetanus Toxoid Vaccination: No (PT UNSURE) Hx Influenza Vaccination: No Hx Pneumococcal Vaccination: Yes (2015) - Home Medications Home Medications: Ambulatory Orders Medication Instructions Recorded Rosuvastatin Calcium [Crestor] 10 mg PO DAILY 05/31/17 Metformin HCl [Glucophage] 500 mg PO BID 07/08/17 Aspirin [Ecotrin] 81 mg PO DAILY 07/20/17 Famotidine [Pepcid] 20 mg PO DAILY 07/20/17 Ibuprofen [Motrin] 1 tab PO TID PRN #20 tab 06/29/18 - Allergies Allergies/Adverse Reactions: Allergies Allergy/AdvReac Type Severity Reaction Status Date / Time oxycodone Allergy RASH Verified 08/30/18 15:29 tramadol Allergy RASH Verified 08/30/18 15:29 Review of Systems ROS Statement: Except As Marked, All Systems Reviewed And Found Negative Cardiovascular: Negative for: Chest Pain Respiratory: Negative for: Other (difficulty breathing) Musculoskeletal: Positive for: Leg Pain (right) Neurological: Negative for: Numbness (or tingling) Physical Exam - Reviewed Nursing Documentation Reviewed: Yes Vital Signs Reviewed: Yes - Physical Exam Comments: GENERAL APPEARANCE: Patient is awake, alert, oriented x 3, in no acute distress. SKIN: Warm, dry; (-) cyanosis. RESPIRATORY: Normal breath sounds, clear to auscultation bilaterally. (-) rales, (-) rhonchi, (-) wheezing. CARDIOVASCULAR: Regular rate and rhythm. (-) murmur. LOWER EXTREMITY: Full ROM. (+) swelling to right leg, (+) tenderness to right posterior medial calf, (+) distal pulses. (-) Araceli's sign. (-) palpable cords. Capillary refill less than 2 seconds, NVI BADOMEN: Soft, non-tender. Multiple well-healed scars. NEUROLOGIC: (+) distal sensation. - Laboratory Results Result Diagrams: 08/30/18 16:49 08/30/18 16:49 - ECG O2 Sat by Pulse Oximetry: 98 (RA) Pulse Ox Interpretation: Normal Medical Decision Making Medical Decision Making: Time: 1606 Impression: Right Leg Pain; r/o DVT Plan; CMP CBC PTT Prothrombin Time Toradol 30 mg IVp IV Insertion Duplex Lower Extrm Vein Right [US] Time: 1759 FINDINGS: COMMON FEMORAL VEIN: Unremarkable. SUPERFICIAL FEMORAL VEIN: Unremarkable. POPLITEAL VEIN: Unremarkable. POSTERIOR TIBIAL VEIN: Unremarkable. OTHER FINDINGS: None. IMPRESSION: No evidence of deep venous thrombosis in the right lower extremity. Time: 1855 [facility] # [id number] Patient informed US is negative for blood clot. Patient instructed to rest, ice, and elevate leg. Patient advised to followup with primary. Return parameters discussed: if symptoms worsen or patient begins to experience swelling, chest pain, or difficulty breathing. Discussed results, diagnosis, treatment, return precautions and f/u with pt who is understanding, in agreement and stable for dc Scribe Attestation: Documented by Caden Stevens, acting as a scribe Karina Parsons PA-C. Provider Scribe Attestation: All medical record entries made by the Scribe were at my direction and personally dictated by me. I have reviewed the chart and agree that the record accurately reflects my personal performance of the history, physical exam, medical decision making, and the department course for this patient. I have also personally directed, reviewed, and agree with the discharge instructions and disposition. Disposition - Clinical Impression Clinical Impression: Pain in right lower leg - Patient ED Disposition Is Patient to be Admitted: No Counseled Patient/Family Regarding: Studies Performed, Diagnosis, Need For Followup - Disposition Referrals: Podiatry Clinic [Outside] Jay Carter MD [Staff Provider] - Disposition: Routine/Home Disposition Time: 18:47 Condition: STABLE Additional Instructions: Howard por dejarnos cuidar de ti hoy. La atencin mdica de emergencia que recibi hoy se dirigi a ramila sntomas agudos. Si le recetaron algn medicamento, llnelo y tmelo segn las indicaciones. Los sntomas pueden tardar varios palencia en resolverse. Regrese al Departamento de Emergencias si ramila sntomas empeoran, no mejoran o si tiene otros problemas. Comunquese con petersen mdico dentro de 2 palencia para jo nueva evaluacin y emilie un seguimiento o llame a nahum de los mdicos / clnicas a los que morelos sido referido y que figuran en el formulario de Informacin de visita al paciente que se incluye en petersen paquete de luz elena. Lleve todos los documentos que recibi al momento del luz elena junto con los medicamentos que est tomando para petersen visita de seguimiento. Nuestro tratamiento no puede reemplazar la atencin mdica continua por parte de un proveedor de atencin primaria (PCP) fuera del departamento de emergencias. Instructions: Swelling Forms: [facility] (Norwegian) Print Language: LITHUANIAN - NAIDA Present On Arrival: None
[2018-08-30 17:21] LABS: ALB/GLOB RATIO 1.3 (1.0-2.1); ALBUMIN 4.4 g/dL (3.5-5.0); ALT/SGPT 19 U/L (9-52); AST/SGOT 26 U/L (14-36); BLOOD UREA NITROGEN 17 mg/dl (7-17); CALCIUM 9.1 mg/dL (8.4-10.2); GFR NON-AFRICAN AMERICAN > 60
--- NOTE | 2018-08-30 18:03 | US ---
Date of service: 08/30/2018 PROCEDURE: Right lower extremity venous duplex Doppler. HISTORY: rle pain swelling, h/o dvt COMPARISON: None available. TECHNIQUE: Common femoral, superficial femoral, popliteal and posterior tibial veins were evaluated. Flow was assessed with color Doppler, compressibility, assessment of phasic flow and augmentation response. FINDINGS: COMMON FEMORAL VEIN: Unremarkable. SUPERFICIAL FEMORAL VEIN: Unremarkable. POPLITEAL VEIN: Unremarkable. POSTERIOR TIBIAL VEIN: Unremarkable. OTHER FINDINGS: None. IMPRESSION: No evidence of deep venous thrombosis in the right lower extremity.
[2018-08-30 19:04] VITALS: BP 125/76; PULSE 76; RESP 18; TEMP 98.1
== END 2018-08-30 18:54 | disposition home or self-care (01) ==
LOC: H.ER 15:13
DX: M79.604 Pain in right leg (principal); Z86.718 Personal history of other venous thrombosis and embolism; E11.9 Type 2 diabetes mellitus without complications; Z88.5 Allergy status to narcotic agent; Z88.8 Allergy status to other drugs, medicaments and biological substances
CPT/HCPCS: 80053; 85025; 85610; 85730; 93971; 96372; 99284; J1885